=== PATIENT | female | born 1970 | race Caucasian/White ===

== ENCOUNTER 2018-10-31 07:42 | Day surgery (SDC) | payer OTHER ==
[~2018-10-31] VITALS: Ht 162.6 cm; Wt 82.4 kg
[~2018-10-31 07:42] MED LIST: OMEP40CA38 PO; XANAX PO
[2018-10-31 10:42] VITALS: Ht 162.6 cm; Wt 82.4 kg
[2018-10-31] MEDS ORDERED: GLYCOPYRROLATE 0.4 MG INJ ONE (10:47)
[2018-10-31] MEDS ORDERED: PROPOFOL 40 ML ONE (11:57)
[2018-10-31] MEDS ORDERED: LIDOCAINE 100 MG SYRINGE ONE (11:57)
[2018-10-31 12:13] VITALS: BP 145/85; PULSE 83; RESP 24
[2018-10-31 13:36] VITALS: BP 129/60; PULSE 73; RESP 19
[2018-10-31 13:53] VITALS: BP 122/65; PULSE 62; RESP 18
== END 2018-10-31 16:17 | disposition home or self-care (01) ==
LOC: GIL 07:42
PROVIDERS: ATTEND Internal Medicine Gastroenterology
DX: Z12.11 Encounter for screening for malignant neoplasm of colon (principal); D12.3 Benign neoplasm of transverse colon; K29.50 Unspecified chronic gastritis without bleeding; Q27.33 Arteriovenous malformation of digestive system vessel; I10 Essential (primary) hypertension
CPT/HCPCS: 43239; 45380; J2001; Z7610; 88305; 88312